=== PATIENT | male | born 1955 | race Caucasian/White ===

== ENCOUNTER 2019-07-31 18:29 | Emergency (ER) | payer OTHER ==
[2019-07-31] MEDS: HYDROmorphone 2 MG/ML SDV IVPUSH ONE ×2 (19:21→21:40)
[2019-07-31] MEDS: Midazolam 1 MG/ML 2 ML SDV IVPUSH PRN ×2 (19:25→20:10)
[2019-07-31] MEDS ORDERED: Ketamine 200 MG/20 ML MDV IVPUSH ONE (20:00)
--- NOTE | 2019-08-01 08:06 | CR ---
DATE OF SERVICE: 07/31/19 CLINICAL DATA: INJURY PELVIS AND LEFT HIP: No priors. The patient is status post left hip arthroplasty. There is dislocation of the left hip prosthesis with superior and posterior dislocation of the femoral component with respect to the acetabular component. No fractures. IMPRESSION: Left hip prosthesis dislocation. [id number] [facility]
--- NOTE | 2019-08-01 13:27 | ER ---
REASON FOR ER VISIT: Possible hip dislocation. HISTORY: This is a 64-year-old man who was deer hunting with some friends and was up in a deer stand. He bent over to sweet pickle maker a spent cartridge and bent over the hip when he felt a pop and some searing pain in his left hip and instinctively knew that he probably dislocated his hip prosthesis. He did have a total hip done in 2018 in the past. He was brought in by his friends, after they struggle to get him down off a tree stand and brought in by vehicle accompanied by 4 of his hunting partners. PAST MEDICAL HISTORY: Significant for coronary artery disease with stenting in 1995, aortic heart valve replacement with a tissue valve in 2018, cholecystectomy, left hip arthrodesis, right knee arthrodesis, fusion of C3 to C7. MEDICATIONS: Reviewed. See electronic medical record. They include amlodipine, atenolol, metformin, pantoprazole, aspirin, meloxicam, tamsulosin, and rosuvastatin. ALLERGIES: NONE TO MEDICATIONS. REVIEW OF SYSTEMS: Pertinent positives and negatives as listed in the HPI. PHYSICAL EXAMINATION: GENERAL: He is moaning, but he is alert and very talkative and quite alert. VITALS: See EMR. EXTREMITIES: Left leg is slightly abducted and internally rotated, but not pronounced. There is some mild shortening of his left leg all consistent with a left hip posterior dislocation. Distally, his sensation is intact. His motor function is intact. He has good capillary refill and palpable pulses. FURTHER EMERGENCY ROOM COURSE: He was given 2 mg of Versed and 2 mg of Dilaudid and then we went ahead and obtained an AP and lateral x-ray, which confirmed a posterior dislocation. He was brought back and placed on 100% oxygen, after which he was given 2 more mg of Versed IV, at which time we secured a second IV line and placed him on a monitor. His O2 sats throughout all of this remained 99-100%. Once IVs were secured, he was given 2 more mg of Versed IV followed by 125 mg of ketamine IV over 2 minutes. I then got up on the table, elevated his leg, placed both of my arms under his knee with my right forearm bracing over the anterior distal left femur. I flexed him at the hip and pulled upward with his hip flexed in various degrees. I actually lifted him off the table and could not get a reduction accomplished. Rested for a couple of minutes and tried once again and was yet again unsuccessful. We then aborted any further attempts. Decision was made that he would have to be sent to [place], and I spoke to the emergency room physician, Dr. Hernandez, who agreed to take him in transfer. One concern that I had about trying any further would be my concerns that an intubation might be difficult, if not hazardous, with his history of having had a cervical fusion. The emergency room physician concurred with this and agreed with my plan. The patient's friends were informed and once he comes out of his sedation, we will inform him and then he will be transferred to [place]. It should be noted that prior to the sedation, an informed consent was obtained. JERE /[id number]
== END 2019-07-31 22:00 ==
LOC: LB.ED 18:29
DX: T84.021A Dislocation of internal left hip prosthesis, initial encounter (principal); M25.552 Pain in left hip; I25.10 Atherosclerotic heart disease of native coronary artery without angina pectoris; Z79.82 Long term (current) use of aspirin; Z95.5 Presence of coronary angioplasty implant and graft; Y79.2 Prosthetic and other implants, materials and accessory orthopedic devices associated with adverse incidents
CPT/HCPCS: 27265; 73501; 96374; 96375; 99284; A0425; A0429; J1170; J2250